=== PATIENT | female | born 1975 | race Caucasian/White ===

== ENCOUNTER → 2022-01-13 | Outpatient (CLI) | payer OTHER ==
--- NOTE | 2022-01-13 11:38 | MR ---
EXAMINATION TYPE: MR knee RT wo con DATE OF EXAM: 01/13/2022 COMPARISON: None HISTORY: Right knee pain and swelling, slipped on ice TECHNIQUE: Multiplanar, multisequence imaging of the right knee is performed without IV contrast. FINDINGS: Exam is severely limited due to extreme motion artifact in nearly nondiagnostic. There appe ars to be a sizable suprapatellar joint effusion evidence of subcutaneous edema anteriorly. Grossly t he quadriceps and patellar tendons are intact. Patellar cartilage and patellofemoral and limited asse ssment. Could not exclude marrow edema. Grossly the anterior cruciate and posterior cruciate ligaments intact. Lateral collateral ligament be lieved to be intact. There does appear to be loss of joint space involving the tricompartments most n oted involving the patellofemoral joint and medial compartment of the knee joint. There is extrusion of the medial meniscus on coronal image. Assessment for tear limited with a tear i s suspected involving the body and posterior horn. Appears to be marrow edema involving the medial ti bial plateau. Marrow edema involving the anterior distal right femur also stenosis factors. Incidental note made of a soft tissue nodules posterior to the distal diaphysis femur likely related to multiple lymph nodes. IMPRESSION: 1. Extreme motion artifact resulting in nearly nondiagnostic exam. Grossly the findings do not severe osteoarthritis with greatest involvement involving the medial compartment and pseudo extrusion of th e medial meniscus. Suspect of the body and posterior horn medial meniscal tear on the limited exam. 2. Diffuse marrow edema involving the medial tibial plateau and distal medial femur. Although this co uld be reactive. Given the history of a fall recommend CT scan of the knee to exclude fracture given the limitation of this exam. 3 moderate to large suprapatellar bursal fluid collection
== END | disposition home or self-care (01) ==
LOC: RADMRIMAIN 08:34
PROVIDERS: ATTEND Orthopaedic Surgery
DX: M25.561 Pain in right knee (principal); M25.461 Effusion, right knee; W00.0XXA Fall on same level due to ice and snow, initial encounter

== ENCOUNTER → 2022-01-27 | Outpatient (CLI) | payer OTHER ==
[2022-01-27 19:21] LABS: Anion Gap 11.6 mmol/L (10.00-18.00); Carbon Dioxide 23.8 mmol/L (20.0-27.5); Potassium 4.2 mmol/L (3.5-5.5)
[2022-01-27 19:31] LABS: Anisocytosis (M) 3+; Basophils # (A) 0.04 X 10*3/uL (0.00-0.10); Basophils % (A) 0.5 %; Eosinophils # (A) 0.19 X 10*3/uL (0.04-0.35); Eosinophils % (A) 2.5 %; HCT 43.7 % (37.2-46.3); HGB 11.9 g/dL (12.0-15.0); Immature Grans, Automated 0.3 %; Lymphocytes # (A) 0.92 X 10*3/uL (0.90-5.00); Lymphocytes % (A) 12.3 %; MCH 20.6 pg (27.0-32.0); MCHC 27.2 g/dL (32.0-37.0); MCV 75.6 fL (80.0-97.0); Monocytes # (A) 0.79 X 10*3/uL (0.20-1.00); Monocytes % (A) 10.6 %; NRBC Per 100 WBC 0 /100 WBCS (0.0-0.0); Neutrophils # (A) 5.51 X 10*3/uL (1.80-7.70); Neutrophils % (A) 73.8 %; Platelet Count 144 X 10*3/uL (140-440); RBC 5.78 X 10*6/uL (4.10-5.20); RDW 27.9 % (11.5-14.5); WBC 7.47 X 10*3/uL (4.50-10.00)
== END | disposition home or self-care (01) ==
LOC: LABPAT 11:28
PROVIDERS: ATTEND Orthopaedic Surgery
DX: Z01.812 Encounter for preprocedural laboratory examination (principal); M23.91 Unspecified internal derangement of right knee
CPT/HCPCS: 36415; 80051; 85025

== ENCOUNTER 2022-02-11 13:44 | Day surgery (SDC) | payer OTHER ==
--- NOTE | 2022-02-10 09:14 | HP ---
HISTORY AND PHYSICAL CHIEF COMPLAINT: Right knee pain. 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 She notes she is having persistent pain, swelling and giving way. She notes it locks up on her. She is having night symptoms. She has tried medications in addition to a previous injection, without much relief. She notes she is limping. PAST MEDICAL HISTORY: Negative. PAST SURGICAL HISTORY: Negative. CURRENT MEDICATIONS: Ibuprofen and Tylenol. ALLERGIES: SHE DENIES DRUG ALLERGIES. FAMILY HISTORY: Significant for heart disease. SOCIAL HISTORY: Negative for current tobacco or alcohol use. REVIEW OF SYSTEMS: Sixteen-point review of systems is otherwise reviewed and noncontributory. PHYSICAL EXAMINATION: On examination, the patient is approximately 5 feet 5, 258 pounds of endomorphic habitus. HEENT exam is nonfocal. Neck is supple. She has painless passive motion of the right hip. Straight-leg raise is negative. Active motion of right knee: Minus 16 to 90 degrees of flexion. She is tender about the medial and lateral joint lines. She has a moderate effusion. Collaterals are stable. Guido is negative. Brissa's elicits medial and lateral pain. She has genu varum alignment. Her distal neurovascular exam appears intact in the right lower extremity. MRI report right knee 01/13/2022 shows significant motion artifact. However, there is increased signal involving the posteromedial meniscus along with medial tibial plateau and distal femoral edema. IMPRESSION: 1. Internal derangement of right knee with possible medial and lateral meniscal tears. 2. Obesity. RECOMMENDATIONS: I talked to the patient at length regarding her condition along with treatment options. At this point she is having significant pain and mechanical symptoms despite previous conservative measures. After thorough discussion, she opts to proceed with surgery. We will plan to proceed with arthroscopic evaluation with possible partial medial and lateral meniscectomy. Risks and benefits were discussed at length in layman's terms. We will likely perform that as an outpatient procedure. MMODL / IJN: [id number] /
[~2022-02-11 13:44] MED LIST: DEXAMETHASONE SOD PHOSPHATE 4 MG/ML 1 ML VIAL IV ONE; LACTATED RINGERS 1,000 ML IV SCH; LIDOCAINE 1% (10MG/ML) FOR IV START INTRADERMA PRN; ONDANSETRON 4 MG/2 ML VIAL IVP ONE; SCOPOLAMINE 1.5MG/72HR PATCH TRANSDERM ONE
[2022-02-11] MEDS ORDERED: HYDROmorphone (PF) 1 MG/ML ONE (15:16)
[2022-02-11] MEDS ORDERED: fentaNYL (PF) 50 MCG/ML 2 ML AMP ONE (15:16)
[2022-02-11] MEDS ORDERED: MIDAZOLAM 2 MG/2 ML VIAL ONE (15:16)
[2022-02-11] MEDS ORDERED: KETOROLAC 15 MG/ML 1 ML VIAL ONE (15:16)
[2022-02-11] MEDS ORDERED: LIDOCAINE 1% INJ 10MG/ML (20 ML MDV) ONE (15:16)
[2022-02-11] MEDS ORDERED: PROPOFOL 10 MG/ML 20 ML VIAL IV ONE (15:16)
[2022-02-11] MEDS ORDERED: EPINEPHrine (PF) 1 ML in SODIUM CHLORIDE 0.9% IRRIGATIO 3,000 ML IRRIGATION ONE ×4 (15:16)
--- NOTE | 2022-02-11 16:07 | P.OP ---
Date of Procedure: 02/11/22 Preoperative Diagnosis: Right knee internal derangement Postoperative Diagnosis: Right knee posterior medial meniscal tear/posterior lateral meniscal tear/marked synovitis of the medial, lateral, and patellofemoral compartments Procedure(s) Performed: Right knee arthroscopic partial medial meniscectomy/partial lateral meniscectomy/partial synovectomy of the medial, lateral, and patellofemoral compartments Anesthesia: PATSY Surgeon: Duncan Draper Estimated Blood Loss (ml): 10 Pathology: none sent Condition: stable Disposition: PACU Indications for Procedure: The patient is a 46-year-old female presents with progressive right knee pain despite conservative measures. A discussion of the risks and benefits of operative intervention versus continued conservative measures was made with patient. She to proceed with surgery. Operative risks to include infection, neurovascular injury, development of blood clots, possible incomplete resolution of symptoms, possible worsening symptoms and need for subsequent procedures was discussed. Informed consent was obtained. Operative Findings: As below Description of Procedure: The patient was brought to the operating room, and after induction of general anesthesia examined the right knee. Collaterals were stable, Guido was negative, and posterior drawer was negative. The right lower extremity was prepped and draped in a normal fashion. A superior lateral portal was made through a 3 mm skin incision superior and lateral to the patella. This was used for outflow. A lateral portal was made through a 5 mm vertical skin incision lateral to the patella tendon above the joint line. Diagnostic arthroscopy was performed. On inspection of the medial compartment, a complex tear involving the posterior horn of the medial meniscus in the white-white junction was noted. This was debrided back to stable base with straight baskets and a motorized shaver. Significant synovitis throughout the medial compartment was noted. This to be with motorized shaver back to a stable base. Grade 2-3 chondral changes were noted diffusely in the medial compartment. On inspection of the notch, the anterior cruciate ligament appeared to be intact. On inspection of the lateral compartment, and oblique tear involving the posterior horn lateral meniscus in the white-white junction was noted. This was debrided back to stable base with straight baskets and a motorized shaver.. On inspection of the patellofemoral articulation, there was marked synovitis debrided with a motorized shaver. Grade 2-3 chondral changes were noted diffusely.. The gutters were clear debris. The knee was then thoroughly irrigated. The portals were closed with simple 3-0 nylon sutures.. A sterile dressing was applied in addition to a compression stocking. The patient was awoken from general anesthesia and transferred to recovery room in good condition. Blood loss was estimated at 10 mL. No complications were incurred.
[2022-02-11] MEDS: HYDROmorphone 0.5 MG/0.5 ML SYRINGE IVP PRN ×2 (16:09→16:14)
[2022-02-11] MEDS: MEPERIDINE 50 MG/ML SYRINGE IVP ONE ×2 (16:24→16:32)
[2022-02-11 16:30] VITALS: TEMP 97.2
[2022-02-11 17:25] VITALS: BP 132/86; PULSE 67; RESP 18
== END 2022-02-11 18:10 | disposition home or self-care (01) ==
LOC: OR 13:44
PROVIDERS: ATTEND Orthopaedic Surgery
DX: M23.203 Derangement of unspecified medial meniscus due to old tear or injury, right knee (principal); M23.200 Derangement of unspecified lateral meniscus due to old tear or injury, right knee; M65.861 Other synovitis and tenosynovitis, right lower leg; Z79.1 Long term (current) use of non-steroidal anti-inflammatories (NSAID); Z79.899 Other long term (current) drug therapy; Z82.49 Family history of ischemic heart disease and other diseases of the circulatory system; K21.9 Gastro-esophageal reflux disease without esophagitis; M19.90 Unspecified osteoarthritis, unspecified site
CPT/HCPCS: 81025; 29880; J2250; J1100; J2175; J0690; J2405; J0171; J2001; J3010; J1170 ×2; J1885; J2704; J1790

== ENCOUNTER 2023-09-08 05:42 | Day surgery (SDC) | payer OTHER ==
--- NOTE | 2023-09-07 08:54 | P.HPOR ---
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 She's having difficulty time with any weightbearing activities. She is having night symptoms. She notes stiffness, soreness, and intermittent buckling. She's tried medications in addition to injections without much relief. She does have a difficult time with her job because of her knee. Review of Systems Negative except as in HPI Past Medical History Past Medical History: No Reported History History of Any Multi-Drug Resistant Organisms: None Reported Additional Past Surgical History / Comment(s): rt knee meniscus tear, teeth extractions, right knee arthroscopy Past Anesthesia/Blood Transfusion Reactions: No Reported Reaction Smoking Status: Never smoker Medications and Allergies Home Medications Medication Instructions Recorded Confirmed Type No Known Home Medications 09/01/23 09/01/23 History Allergies Allergy/AdvReac Type Severity Reaction Status Date / Time latex AdvReac Rash/Hives Verified 09/01/23 12:10 Physical Examination - Knee right Appearance: effusion Effusion grade: grade 3 Valgus alignment in stance: 10 degrees Tenderness with palpation: anterior, medial Pain: throughout ROM Gait: limping ROM: extension: -15 degrees ROM: flexion: 85 degrees Crepitus with motion: Yes Strength: extension: 5/5 Strength: flexion: 5/5 Meniscal tests: medial meniscal tests: positive, medial joint line pain: positive Results The patient is a well-developed well-nourished female approximately 5 foot 5, 256 pounds of endomorphic habitus. HEENT exam is nonfocal, neck is supple. She has painless passive motion of the right hip. Straight leg raise is negative. On examination of her right knee, she has a large effusion. She tendon about the medial joint line. Collaterals are stable, Guido was negative, Brissa's elicits medial pain. Her distal neurovascular appears intact in the right lower extremity. - Diagnostic results Knee x-ray: image reviewed (3 views of the right knee obtained in the office show severe medial compartment osteoarthrosis with subchondral sclerosis and [id number] changes.) Assessment and Plan Assessment: Right knee severe medial and patellofemoral compartment osteoarthrosis ObesityBMI 42 Plan: I talked with the patient length regarding her condition along with treatment options. At this point she remains quite symptomatic having both pain and mechanical symptoms related to her right knee osteoarthrosis despite previous conservative measures. After a thorough discussion she opts to proceed with surgery. We'll plan to proceed with right total knee arthroplasty. Risks and benefits were discussed at length in layman's terms. We will institute DVT prophylaxis postoperatively.
[~2023-09-08 05:42] MED LIST changes: +ACETAMINOPHEN TAB 500 MG TAB PO PRN; -DEXAMETHASONE SOD PHOSPHATE 4 MG/ML 1 ML VIAL IV ONE; -LACTATED RINGERS 1,000 ML IV SCH; -LIDOCAINE 1% (10MG/ML) FOR IV START INTRADERMA PRN; +MELOXICAM 7.5 MG TAB PO PRN; -ONDANSETRON 4 MG/2 ML VIAL IVP ONE; -SCOPOLAMINE 1.5MG/72HR PATCH TRANSDERM ONE; +TRANEXAMIC 1,000 MG/100ML-NACL 1,000 MG in SALINE 1 100ML.BAG IVPB PRN
[2023-09-08] MEDS ORDERED: LIDOCAINE 1% (10MG/ML) FOR IV START INTRADERMA PRN (06:00)
[2023-09-08] MEDS ORDERED: DEXAMETHASONE SOD PHOSPHATE 4 MG/ML 1 ML VIAL IV ONE (06:00)
[2023-09-08] MEDS ORDERED: ONDANSETRON 4 MG/2 ML VIAL IVP ONE (06:00)
[2023-09-08] MEDS: LACTATED RINGERS 1,000 ML IV SCH (06:45)
[2023-09-08] MEDS ORDERED: MIDAZOLAM 2 MG/2 ML VIAL IVP ONE (06:58)
[2023-09-08] MEDS ORDERED: HYDROmorphone 0.5 MG/0.5 ML SYRINGE IVP PRN ×2 (07:00→09:25)
[2023-09-08] MEDS ORDERED: MIDAZOLAM 2 MG/2 ML VIAL IV PRN (07:00)
[2023-09-08] MEDS ORDERED: DEXAMETHASONE SOD PHOSPHATE 4 MG/ML 1 ML VIAL ONE (07:40)
[2023-09-08] MEDS ORDERED: ROPIVACAINE 5 MG/ML 30 ML VIAL ONE (07:40)
[2023-09-08] MEDS ORDERED: TRANEXAMIC 1,000 MG/100ML-NACL PREMIX BAG ONE (07:40)
[2023-09-08] MEDS ORDERED: KETOROLAC 30 MG/ML 1 ML VIAL ONE (07:40)
[2023-09-08] MEDS ORDERED: fentaNYL (PF) 50 MCG/ML 2 ML AMP ONE (07:40)
[2023-09-08] MEDS ORDERED: PROPOFOL 10 MG/ML 20 ML VIAL IV ONE (07:40)
[2023-09-08] MEDS ORDERED: MIDAZOLAM 2 MG/2 ML VIAL ONE (07:40)
[2023-09-08] MEDS ORDERED: HYDROmorphone 1 MG/ML 1 ML SYRINGE IVP PRN (09:25)
[2023-09-08] MEDS ORDERED: MAGNESIUM HYDROXIDE 2,400 MG/30 ML CUP PO PRN (09:25)
[2023-09-08] MEDS ORDERED: NALOXONE 0.4 MG/ML 1 ML VIAL IV PRN (09:25)
[2023-09-08] MEDS ORDERED: HYDROcodone/APAP 5-325MG 1 EACH TAB PO PRN (09:25)
[2023-09-08] MEDS ORDERED: LACTATED RINGERS 1,000 ML IV ONE ×2 (09:51)
--- NOTE | 2023-09-08 09:53 | P.OP ---
Date of Procedure: 09/08/23 Preoperative Diagnosis: Right knee severe tricompartmental osteoarthrosis Postoperative Diagnosis: Same Procedure(s) Performed: Right total knee arthroplastycementedposterior stabilized Implants: Depuy Attune size 5 narrow cemented femoral component, size 4 cemented tibial component, 10 mm articular surface, 35 mm cemented patellar component. This is a posterior stabilized implant. Anesthesia: regional, spinal Surgeon: Duncan Draper Well Testing Operator #1: Freddy Zheng Estimated Blood Loss (ml): 50 Pathology: none sent Condition: stable Disposition: PACU Indications for Procedure: The patient is a 47-year-old female who presents with progressive right knee pain secondary to osteoarthrosis despite extensive conservative measures. A discussion of the risks and benefits of operative intervention versus continued conservative measures was made with patient. She opted to proceed with surgery. Operative risks to include infection, neurovascular injury, development of blood clots, component loosening/failure and need for subsequent procedures was discussed. Informed consent was obtained. Operative Findings: As below Description of Procedure: The patient was brought to the operating room, and after induction of spinal anesthesia the right lower extremity was prepped and draped in a normal fashion. The tourniquet was inflated to 270 mm marker. A longitudinal incision extending 3 finger breaths above the superior pole of patella extending to the medial aspect the tibial tubercle was then made. The skin and subcutaneous tissues were divided sharply. Electrocautery was used for hemostasis. A medial parapatellar arthrotomy was performed. The medial soft tissues to include the superficial and deep portions of the medial collateral ligament were elevated subperiosteally. The patella was everted. A portion of the retropatellar fat pad was excised sharply. The anterior cruciate ligament was sacrificed. Blunt retractors were placed. A starting hole was made in the distal femur 1 cm anterior to the posterior cruciate ligament origin. An intramedullary femoral guide was then inserted planning on 5 valgus distal cut with 9 mm distal resection. The cutting block was pinned in place. The distal cut was then made. The posterior referencing sizing guide was utilized. I felt size 5 narrow was most appropriate. 3 of external rotation was built into the system and verified off the trans-epicondylar axis and the posterior condyles. The cutting block was pinned in place. The anterior, posterior, and chamfer cuts then made. Bone fragments were removed. The intercondylar guide was placed and the notch cut was made with a sagittal saw. The bone block was removed in one fragment. The trial component was then placed. There is good anterior to posterior and medial to lateral fit. The distal peg holes were drilled. The trial component was removed. Attention was then paid towards preparing the proximal tibia. An extra medullary guide was utilized in line with the tibial shaft and second metatarsal distally. I planned on 2 mm resection from the medial compartment. The cutting block was pinned in place. The proximal tibial cut was then made. The bone was removed in one fragment. The remnants of the medial and lateral menisci were excised at the capsular junction with electrocautery. The tibia sized most appropriately at size 4. The trial femoral and tibial components were placed along with a 10 mm articular surface. I was able to obtain full flexion and extension with internal and external rotation. After several flexion and extension cycles, the tibial rotation was marked with electrocautery line with the medial one third of the tibial tubercle. Attention was then paid towards preparing the patella. A patella reamer was utilized taking stem to 14 mm of bone stock. A good flush cut was made. The patella sized most appropriately 35 mm. The peg holes were drilled. The trial components placed. I had good patellofemoral tracking with no hands technique. The trial components were then removed. The tibia was prepared in the appropriate rotation with appropriate drill and keel punch. The posterior osteophytes were removed with a curved osteotome. The flexion and extension gaps were checked and felt to be symmetric at 10 mm. A trial components were then removed. The bony surfaces were prepared with pulsatile lavage and dried. The tibial component was then cemented place was fully seated. Excess cement was removed. The femoral component cemented place and was fully seated. Excess cement was removed. The trial 10 mm articular surface was placed and the knee was put in full extension. The patella component was cemented place. After the cement had sufficiently hardened, the knee was again taken through a range of motion. Again I was able to obtain full flexion and extension with varus and valgus stress. The trial 10 mm articular surface was removed and the final one inserted. This was fully seated. Care was taken to avoid any soft tissue interposition. Pulsatile lavage was again utilized. The medial parapatellar arthrotomy was closed with #2 Ethibond suture. The tourniquet was deflated with approximately 60 minutes total tourniquet time. Final hemostasis was obtained with the cautery. There was minimal bleeding therefore a deep drain was not placed. The subcutaneous tissues were reapproximated with interrupted 2-0 Vicryl sutures. The skin was reapproximated with 3-0 subcuticular strata fix suture. Skin tape and adhesive was applied. A sterile dressing was applied. The patient was awoken from sedation and transferred to recovery room in good condition. Blood loss was estimated at 50 mL. No complications were incurred. Sponge and needle counts were correct at the end of the case. Freddy HARRINGTON assisted during the major components of this case to include exposure, bone resection, implantation, and closure.
[2023-09-08] MEDS ORDERED: ROPIVACAINE 0.2%-NS ON-Q PUMP 2 MG/ML EACH MISCELLANE PRN (09:59)
--- NOTE | 2023-09-08 10:22 | XR ---
EXAMINATION TYPE: XR knee limited RT DATE OF EXAM: 09/08/2023 COMPARISON: NONE TECHNIQUE: Two views submitted HISTORY: Post op FINDINGS: There is a prosthetic knee in near anatomic alignment. There is soft tissue edema and subcutaneous emphysema compatible with recent surgery. IMPRESSION: 1. Postoperative change. Appears in near-anatomic alignment
--- NOTE | 2023-09-08 11:16 | P.ANPRN ---
Procedure Note - Anesthesia - Nerve Block Performed Right Adductor Canal Infusion Time Out Performed: Yes Date of Procedure: 09/08/23 Procedure Start Time: 06:57 Procedure Stop Time: 07:10 Location of Patient: PreOp Indication: Acute Post-Operative Pain, Requested by Surgeon Sedation Type: Sedate with meaningful contact maintained Preparation: Sterile Prep, Sterile Dressing Position: Supine Catheter: Indwelling Needle Types: Pajunk Needle Gauge: 21 Ultrasound used to visualize needle placement: Yes Ultrasound used to observe medication spread: Yes Blood Aspirated: No Pain Paresthesia on Injection Noted: No Resistance on Injection: Normal Image Stored and Saved: Yes Events: Uneventful and Well Tolerated (Ropivacaine 0.5% 20 mL plus dexamethasone 4 mg)
--- NOTE | 2023-09-08 11:18 | P.ANPRN ---
Procedure Note - Anesthesia - Nerve Block Performed Right Aung Single Time Out Performed: Yes Date of Procedure: 09/08/23 Procedure Start Time: 07:11 Procedure Stop Time: 07:14 Location of Patient: PreOp Indication: Acute Post-Operative Pain, Requested by Surgeon Sedation Type: Sedate with meaningful contact maintained Preparation: Sterile Prep Position: Supine Needle Types: Pajunk Needle Gauge: 21 Ultrasound used to visualize needle placement: Yes Ultrasound used to observe medication spread: Yes Blood Aspirated: No Pain Paresthesia on Injection Noted: No Resistance on Injection: Normal Image Stored and Saved: Yes Events: Uneventful and Well Tolerated (Ropivacaine 0.5% 25 mL plus dexamethasone 4 mg)
[2023-09-08] MEDS: HYDROcodone/APAP 7.5-325MG 1 EACH TAB PO PRN (11:58)
[2023-09-08] MEDS: hydrOXYzine pamoate 25 MG CAP PO PRN (11:59)
--- NOTE | 2023-09-08 13:47 | P.CONS ---
History of Present Illness - Reason for Consult Consult date: 09/08/23 - History of Present Illness Patient is a 47-year-old female with no significant past medical history presenting for elective right total knee arthroplasty. [facility] has been consulted for medical management. She denies any chest pain, shortness of breath, abdominal pain, nausea, vomiting, urinary or bowel complaints. She denies any smoking, alcohol use, or illicit drug use. Pertinent positives and negatives as discussed in HPI, a complete review of systems was performed and all other systems are negative. Patient seen and examined at bedside. Vital signs reviewed General: nontoxic, no distress, appears at stated age, morbidly obese Derm: warm, dry, knee dressing clean, dry, intact Head: atraumatic, normocephalic, symmetric Eyes: EOMI, no lid lag, anicteric sclera, pupils equal round reactive to light ENT: Nose and ears atraumatic Neck: No thyromegaly, supple Mouth: no lip lesion, mucus membranes moist Cardiovascular: S1S2 reg, no murmur, no edema Lungs: clear to auscultation bilateral, no rhonchi, no rales, no wheeze, no accessory muscle use Abdominal: soft, nontender to palpation, no guarding, no appreciable organomegaly Ext: no gross muscle atrophy, muscle strength muscle strength 5 out of 5 in all 4 extremities, no contractures Neuro: CN II-XII grossly intact Psych: Alert, oriented, appropriate affect Assessment/Plan: Status post right total knee arthroplasty Systolic murmur Morbid obesity, BMI 44 -Pain control with oral [place] as needed, IV Dilaudid as needed -Anesthesiology following -On Xarelto for DVT prophylaxis -PT -CBC and BMP ordered for tomorrow -Outpatient follow-up for echocardiogram -Outpatient weight loss program recommended Thank you for allowing us to participate in the care of this pleasant patient. Do not hesitate to contact us with questions. Someone can be reached from the [facility] hospitalist group all hours of the day at [phone] or via [employer] Past Medical History Past Medical History: No Reported History History of Any Multi-Drug Resistant Organisms: None Reported Additional Past Surgical History / Comment(s): rt knee meniscus tear, teeth extractions, right knee arthroscopy Past Anesthesia/Blood Transfusion Reactions: No Reported Reaction Past Psychological History: No Psychological Hx Reported Smoking Status: Never smoker Past Alcohol Use History: None Reported Past Drug Use History: None Reported Medications and Allergies Home Medications Medication Instructions Recorded Confirmed Type No Known Home Medications 09/01/23 09/08/23 History Allergies Allergy/AdvReac Type Severity Reaction Status Date / Time latex AdvReac Rash/Hives Verified 09/08/23 06:30 Physical Exam Vitals: Vital Signs Temp Pulse Pulse Resp BP BP Pulse Ox 09/08/23 11:00 68 16 136/85 97 09/08/23 10:45 65 16 128/60 96 09/08/23 10:37 64 16 128/80 97 09/08/23 10:21 67 16 123/80 95 09/08/23 10:06 68 16 119/77 94 L 09/08/23 09:51 97.3 F L 77 16 121/80 93 L 09/08/23 07:27 91 16 133/78 100 09/08/23 06:29 97.3 F L 72 16 141/83 96 Intake and Output 09/07/23 09/08/23 09/08/23 22:59 06:59 14:59 Intake Total 100 1850 Output Total 50 Balance 100 1800 Intake: IV 100 1850 Output: Estimated Blood Loss 50 Other: Weight 120.7 kg 120.7 kg
[2023-09-08] MEDS ORDERED: SENNOSIDES-DOCUSATE SODIUM 1 EACH TAB PO SCH (21:00)
[2023-09-08 21:58] VITALS: RESP 19
[2023-09-09] MEDS: LACTATED RINGERS 1,000 ML IV SCH (05:07)
[2023-09-09] MEDS: HYDROcodone/APAP 7.5-325MG 1 EACH TAB PO PRN ×3 (05:35→14:43)
--- NOTE | 2023-09-09 06:58 | P.PN ---
Progress Note - Text Progress Note Date: 09/09/23 The patient is doing well status post total knee replacement. Pain is well con trolled by a combination of local anesthetic infusion through the adductor canal catheter and oral analgesics. There are no signs of infection around the catheter skin entry site. The local anesthetic infusion will be continued as per protocol.
[2023-09-09 07:56] VITALS: BP 121/78; PULSE 80; TEMP 98.4
[2023-09-09] MEDS ORDERED: RIVAROXABAN 10 MG TAB PO SCH (09:00)
[2023-09-09] MEDS: hydrOXYzine pamoate 25 MG CAP PO PRN ×2 (09:04→14:44)
--- NOTE | 2023-09-09 10:41 | P.PN ---
Subjective Progress Note Date: 09/09/23 Principal diagnosis: Right knee osteoarthritis Patient was seen at bedside this morning sitting up in chair with legs elevated icing right knee. Dressing is present over right knee. Patient says she just finished working with physical therapy and walk on the [place] and up-and-down stairs. Patient says she does not have a walker for home. Patient says she does have a cane at home. Patient says she has urinated several times since surgery was performed yesterday. Patient says she is looking forward to going home later today. Patient says the pain is mostly at the front of the knee. Patient says medication has helped control the pain. Patient denies chest pain, fever, shortness breath, nausea, vomiting, change in vision, loss of bowel/bladder control. Objective - Vital Signs Vital signs: Vital Signs Temp 98.4 F 09/09/23 07:17 Pulse 80 09/09/23 07:17 Resp 19 09/09/23 07:17 BP 121/78 09/09/23 07:17 Pulse Ox 96 09/09/23 07:17 FiO2 Intake & Output 09/08/23 09/09/23 09/09/23 18:59 06:59 18:59 Intake Total 1850 Output Total 50 Balance 1800 Weight 120.7 kg Intake: IV 1850 Output: Estimated Blood Loss 50 Other: # Voids 3 2 - Exam Right knee: Incision is clean, dry, and intact. The exofin fusion tape is in good condition. There is minimal soft tissue swelling and ecchymosis surrounding the medial and lateral aspects of the incision. Calf is soft, no tenderness with palpation. Plantar flexion, dorsiflexion, EHL, FHL are intact. Sensory exam to light touch throughout the extremity is intact, dorsal pedis pulses 2+. Assessment and Plan Assessment: 1. Right knee osteoarthritis - Postop day 1 status post right total knee arthroplasty Plan: 1. Right knee osteoarthritis - right total knee arthroplasty performed yesterday, 09/08/2023. Patient stable at bedside this morning. Prescription for walker was signed. Patient did do well with therapy this morning. Discharge home today with health services. 2. Appreciate medical management 3. Pain management - [place] 4. DVT prophylaxis - Xarelto in hospital. Going home with Eliquis 5. GI prophylaxis - senna 6. PT/OT - weightbearing as tolerated with walker 7. Encourage incentive spirometer use 8. Discharge planning - discharge home today with health services. Time with Patient: Less than 30
--- NOTE | 2023-09-09 10:43 | P.DS ---
Providers Date of admission: 09/08/2023 Expected date of discharge: 09/09/23 Attending physician: Duncan Draper Consults: 09/08/23 09:25 Consult Physician Routine Consulting Provider: Corey Schaefer Consult Reason/Comments: medical management s/o right total knee arthroplasty Do you want consulting provider notified?: Yes Primary care physician: Stated None Hospital Course: Date of admission: 09/08/2023 Date of discharge: 09/09/2023 Admission diagnosis: Right knee osteoarthritis Discharge diagnosis: Same Attending physician: Dr. Draper Surgical procedures: Right total knee arthroplasty Brief history: Patient is a 47-year-old female with a history of progressive primary right knee osteoarthritis. At this point patient has failed conservative treatment measures and has opted to proceed with a elective right total knee arthroplasty. Hospital course: Details of patient's surgery can be found in operative report. Patient tolerated the procedure well and was subsequently transported to orthopedic floor. Patient's orthopeidc and medical care was provided daily. Patient had daily laboratory tests performed for evaluation of overall blood counts. Patient had daily physical therapy to include strengthening range of motion as well as education with walker ambulation. Patient was treated with Xarelto for their postoperative DVT prophylaxis during their inpatient stay. Patient was noted to have a relatively uneventful postoperative course. Patient reported satisfactory pain control with oral pain medications by postoperative day 1. Patient showed satisfactory progress with physical therapy. Patient moved steadily through the program and had no difficulty meeting the goals by postoperative day 1. Given patient's otherwise satisfactory course and having met physical therapy goals, plan is to discharge patient home with health services on postoperative day 1. Discharge condition/disposition: Patient will be discharged home with [facility] in stable condition. Discharge medications: Instructions are given on resumption of patient's normal daily medications per primary care recommendation, in addition patient will be prescribed [place]; Vistaril; senna; Eliquis 2.5 mg twice a day 2 weeks. Discharge instructions: 1. Wound care and infection precautions, keep incision dry and covered while showering, no lotions, creams, moisturizers. No soaking, tubs, pools, hottubs. Do not scrub over the incision. 2. Weight-bear as tolerated with walker / cane until follow-up. 3. Ice and elevate when necessary. Do not exceed 20 minutes per hour with ice pack. 4. Utilize compression sleeve until seen at first follow up appointment. 5. Visiting nursing care. 6. Home physical therapy including home CPM. 7. Pain meds and anticoagulants per prescription. 8. Pain medication has potential to cause constipation. Increase oral fluid and fiber intake. Contact primary care provider if you have not had a bowel movement within 48 hours after discharge 9. No anti-inflammatory medication until discussed at first post operative visit, this including Motrin, Aleve, Mobic, Diclofenac. 10. Follow up in office at 2 weeks postop with Alexys Bonilla PA-C / Freddy Zheng PA-C 11. Follow up with your primary care doctor 7-10 days after discharge. 12. Contact [facility] with any questions, . Assessment: Right knee osteoarthritis Procedures: Right total knee arthroplasty Patient Condition at Discharge: Good Plan - Discharge Summary Discharge Rx Participant: No New Discharge Prescriptions: No Action No Known Home Medications Discharge Medication List No Known Home Medications 09/01/23 [History] Follow up Appointment(s)/Referral(s): Freddy Zheng PAC [PHYSICIAN LAY OUT WORKER] - 2 Weeks [facility],Equipment [NON-STAFF] - As Needed (Please call [facility] once home to arrange delivery of the Continuous Passive Motion (CPM) machine.) Patient Instructions/Handouts: Knee Replacement (DC) Activity/Diet/Wound Care/Special Instructions: Orthopedic Discharge Instructions: 1. Wound care and infection precautions, keep incision dry and covered while showering, no lotions, creams, moisturizers. No soaking, pools, hot tubs. Do not scrub over incision. 2. Weight-bear as tolerated with walker / cane until follow-up. 3. Ice and elevate when necessary. Do not exceed 20 minutes per hour with ice pack. 4. Utilize compression sleeve until seen at first follow up appointment. 5. Pain meds and anticoagulants per prescription. 6. Pain medication has potential to cause constipation. Increase oral fluid and fiber intake. Contact primary care provider if you have not had a bowel movement within 48 hours after discharge. 7. No anti-inflammatory medication until discussed at first post operative visit, this including Motrin, Aleve, Mobic, Diclofenac. 8. Follow up in office at 2 weeks postop with Alexys Bonilla PA-C / Freddy Zheng PA-C 9. Follow up with your primary care doctor 7-10 days after discharge. 10. Contact [facility] with any questions, . Keep incision clean, dry, intact. While showering, cover fusion tape with Saran wrap. Keep fusion tape on until follow-up appointment in office at 2 weeks. Discharge Disposition: HOME WITH HOME HEALTH SERVICES
[2023-09-09 11:02] LABS: Basophils # (A) 0.01 X 10*3/uL (0.00-0.10); Basophils % (A) 0.1 %; Eosinophils # (A) 0.01 X 10*3/uL (0.04-0.35); Eosinophils % (A) 0.1 %; HCT 32.6 % (37.2-46.3); Lymphocytes # (A) 1.41 X 10*3/uL (0.90-5.00); MCH 25.6 pg (27.0-32.0); MCHC 30.7 d/dL (32.0-37.0); MCV 83.6 FL (80.0-97.0); Mean Platelet Volume 12.5 FL (9.5-12.2); Monocytes # (A) 0.75 X 10*3/uL (0.20-1.00); NRBC Per 100 WBC 0 X 10*3/uL (0.00-0.01); Neutrophils % (A) 76.4 %; Platelet Count 212 X 10*3/uL (140-440); RDW 13.5 % (11.5-14.5); WBC 9.42 X 10*3/uL (4.50-10.00)
[2023-09-09 11:15] LABS: BUN/Creat Ratio 16.86 Ratio (12.00-20.00); Blood Urea Nitrogen 11.8 mg/dL (9.0-27.0); Calcium 8.7 mg/dL (8.7-10.3); Carbon Dioxide 22.5 mmol/L (21.6-31.8); Chloride 105 mmol/L (96-109); Glucose 126 mg/dL (70-110); Potassium 3.7 mmol/L (3.5-5.5); Sodium 139 mmol/L (135-145)
--- NOTE | 2023-09-09 12:27 | P.PN ---
Subjective Progress Note Date: 09/09/23 Subjective: Seen and examined at bedside. No acute events overnight. Minimal pain in right knee. Pertinent positives and negatives as discussed above, a complete review of systems was performed and all other systems are negative. Vitals Signs Reviewed. General: nontoxic, no distress, appears at stated age, morbidly obese Derm: warm, dry, knee dressing clean, dry, intact Head: atraumatic, normocephalic, symmetric Eyes: EOMI, no lid lag, anicteric sclera, pupils equal round reactive to light ENT: Nose and ears atraumatic Neck: No thyromegaly, supple Mouth: no lip lesion, mucus membranes moist Cardiovascular: S1S2 reg, no murmur, no edema Lungs: clear to auscultation bilateral, no rhonchi, no rales, no wheeze, no accessory muscle use Abdominal: soft, nontender to palpation, no guarding, no appreciable organomegaly Ext: no gross muscle atrophy, muscle strength muscle strength 5 out of 5 in all 4 extremities, no contractures Neuro: CN II-XII grossly intact Psych: Alert, oriented, appropriate affect Data Reviewed Today: Pertinent Labs: WBC 9.42, hemoglobin 10, creatinine 0.7 Imaging: No new imaging Assessment and Plan: Status post right total knee arthroplasty Acute blood loss anemia, anticipated outcome of surgery Systolic murmur Morbid obesity, BMI 44 -Pain control with oral [place] as needed, IV Dilaudid as needed -On Xarelto for DVT prophylaxis -PT -Outpatient follow-up for echocardiogram -Outpatient weight loss program recommended Patient is medically optimized for discharge home Thank you for allowing us to participate in the care of this pleasant patient. Do not hesitate to contact us with questions. Someone can be reached from the [facility] hospitalist group all hours of the day at [phone] or via perfect serve Objective - Vital Signs Vital signs: Vital Signs Temp 98.4 F 09/09/23 07:17 Pulse 80 09/09/23 07:17 Resp 19 09/09/23 07:17 BP 121/78 09/09/23 07:17 Pulse Ox 96 09/09/23 07:17 FiO2 Intake & Output 09/08/23 09/09/23 09/09/23 18:59 06:59 18:59 Intake Total 1850 Output Total 50 Balance 1800 Weight 120.7 kg Intake: IV 1850 Output: Estimated Blood Loss 50 Other: # Voids 3 2 - Labs CBC & Chem 7: 09/09/23 06:00 09/09/23 06:00 Labs: Abnormal Lab Results - Last 24 Hours (Table) 09/09/23 09/09/23 Range/Units 06:00 06:00 RBC 3.90 L (4.10-5.20) X 10*6/uL Hgb 10.0 L (12.0-15.0) d/dL Hct 32.6 L (37.2-46.3) % MCH 25.6 L (27.0-32.0) pg MCHC 30.7 L (32.0-37.0) d/dL MPV 12.5 H (9.5-12.2) FL Eosinophils # 0.01 L (0.04-0.35) X 10*3/uL Glucose 126 H (70-110) mg/dL
== END 2023-09-09 15:42 | disposition home health service (06) ==
LOC: OR 05:42 → 4SSUR 09:27 → OR 09-09 15:42
PROVIDERS: ATTEND Orthopaedic Surgery
DX: M17.11 Unilateral primary osteoarthritis, right knee (principal); G89.18 Other acute postprocedural pain; E66.09 Other obesity due to excess calories; Z68.41 Body mass index [BMI] 40.0-44.9, adult; Z79.01 Long term (current) use of anticoagulants; Z86.73 Personal history of transient ischemic attack (TIA), and cerebral infarction without residual deficits; Z79.899 Other long term (current) drug therapy
CPT/HCPCS: 97161; 81025; 64999; 64448; 80048; 85025; 73560; 27447; C1713 ×2; C1776; C1751; J2250; J1100; J0690; J2405; J2795